=== PATIENT | female | born 1955 | race Caucasian/White ===

== ENCOUNTER → 2017-12-16 | Outpatient (CLI) | payer OTHER | END | disposition home or self-care (01) | LOC: LAB SHORT 07:59 → PLD 07:59 | DX: L57.0 Actinic keratosis (principal) | CPT/HCPCS: 88305 ==

== ENCOUNTER → 2018-06-11 | Outpatient (CLI) | payer OTHER ==
[~2018-06-11] MED LIST: ACID REDUCER 1150 MG PO; ACYC400 PO; BUPR150ER PO; CITRACAL + D E1 EACH PO; ESTRADIOL1 EAC1 TD; FLONASE ALLERG9.9 ML; GLUCOSAMINE HC500 MG PO; Hard Nails2500 MCG PO; IBUP800 PO; KRILL OIL500 MG PO; LINZESS290 MCG PO; MISO200 PO; MULTI VITAMIN1 EACH PO; NAPR220; PROG100 PO; SUPHEDRINE SINU30 MG PO; TRAZ50 PO
[2018-06-12 14:08] LABS: HPV 16 Negative (Negative); HPV 18 Negative (Negative); HPV OTHER HR TYPES Negative (Negative)
== END | disposition home or self-care (01) ==
LOC: LAB SHORT 12:11 → LAB 12:11
PROVIDERS: Nurse Practitioner Women's Health
DX: Z12.4 Encounter for screening for malignant neoplasm of cervix (principal); R87.619 Unspecified abnormal cytological findings in specimens from cervix uteri; Z91.89 Other specified personal risk factors, not elsewhere classified
CPT/HCPCS: 87624; G0123

== ENCOUNTER 2018-06-25 08:16 | Day surgery (SDC) | payer OTHER ==
[~2018-06-25] VITALS: Ht 160 cm; Wt 66.2 kg
== END 2018-06-25 10:10 | disposition home or self-care (01) ==
LOC: ORSCSDS 08:16
PROVIDERS: Internal Medicine Gastroenterology
PROC: 0DB68ZX Excision of Stomach, Via Natural or Artificial Opening Endoscopic, Diagnostic (ICD-10-PCS; principal; 2018-06-25 09:30)
DX: K21.9 Gastro-esophageal reflux disease without esophagitis (principal); K44.9 Diaphragmatic hernia without obstruction or gangrene; K22.2 Esophageal obstruction; F32.9 Major depressive disorder, single episode, unspecified; J45.909 Unspecified asthma, uncomplicated; E78.00 Pure hypercholesterolemia, unspecified; Z79.899 Other long term (current) drug therapy
CPT/HCPCS: 88305; 88342; J7120

== ENCOUNTER → 2018-06-26 | Outpatient (CLI) | payer OTHER | END | disposition home or self-care (01) | LOC: LAB SHORT 07:29 → PLD 07:29 | DX: N85.00 Endometrial hyperplasia, unspecified (principal); N95.0 Postmenopausal bleeding | CPT/HCPCS: 88305 ==

== ENCOUNTER 2022-09-13 09:38 | Day surgery (SDC) | payer OTHER ==
[~2022-09-13] VITALS: Ht 162.6 cm; Wt 69.5 kg
--- NOTE | 2022-09-13 11:12 | NUR ---
09/13/22 1112 Monica Liang PT IN LITHOTOMY POSITION IN [place] STIR-UPS WITH RIGHT ARM SECURED ON ARM BOARD. LEFT ARM IS TUCKED AND PADDED.
--- NOTE | 2022-09-13 12:00 | NUR ---
09/13/22 1200 FAISAL DOWNS PT UP TO BATHROOM. FEELS GREAT NEED TO URINATE. STEADY ON FEET. DENIES PAIN OTHER THAN NEED TO URINATE.
== END 2022-09-13 12:30 | disposition home or self-care (01) ==
LOC: ORSCSDS 09:38
PROVIDERS: Obstetrics & Gynecology
PROC: 0UDB8ZX Extraction of Endometrium, Via Natural or Artificial Opening Endoscopic, Diagnostic (ICD-10-PCS; principal; 2022-09-13 11:00)
DX: N95.0 Postmenopausal bleeding (principal); N84.0 Polyp of corpus uteri; J45.909 Unspecified asthma, uncomplicated; K21.9 Gastro-esophageal reflux disease without esophagitis; Z79.899 Other long term (current) drug therapy
CPT/HCPCS: 88305; A9270; J0690; J1100; J1885; J2250; J2405; J2704; J3010; J7120

== ENCOUNTER 2023-05-16 06:42 | Day surgery (SDC) | payer MEDICARE, OTHER ==
[~2023-05-16] VITALS: Ht 162.6 cm; Wt 67.2 kg
[2023-05-16] VITALS (20 sets, daily range): BP systolic 122–157; BP diastolic 60–96
[~2023-05-16 06:42] MED LIST changes: +MERIBIN5 MG PO; +MODA200 PO; +PRAV20 PO; +ZOLP5 PO
--- NOTE | 2023-05-16 07:00 | NUR ---
Ambulatory in Day.Pt has rigth wrist brace in place from recent surgery. Pt.reports 4/10 right wrist discomfort. Surgery History, Chart, Medications and Allergies reviewed before start of procedure.Lungs clear T/O to Auscultation. Patient confirms NPO status and agrees with scheduled surgery.Type and screen and Type check drawn and sent to lab. Patient reports completing Chlorhexadine shower X2 prior to admission to hospital.Surgical site prepped with 2% Chlorhexidine cloth wipe. Patient States Post-Procedure ride home has been arranged.
--- NOTE | 2023-05-16 12:41 | NUR ---
PATIENT ARRIVED FROM OR TODAY AT 1230. POD 0 LAP HYSTER PATIENT IS A&OX4. HER ABD HAS X4 LAP SITES WITH WOUND GLUE THAT ARE C/D/I. DEBBY WAS JUST TAKEN OUT. SHE WAS A SBA TO THE BATHROOM. ELAN PAD HAD NO BLOOD ON IT AT THIS TIME. PATIENT IS LAYING BACK IN BED WITH CALL LIGHT IN REACH AND AT BEDSIDE.
--- NOTE | 2023-05-16 15:37 | NUR ---
SHIFT SUMMARY: POD 0 LAP HYSTER PATIENT IS A&OX4. VS ARE WNL AND IS ON RA. PAIN IS MANAGED WITH PO PERCOCET AND ADVIL AT THIS TIME. HER NAUSEA HAS BEEN MANAGED WITH IV ZOFRAN, PO PHENERGAN, AND PO SIMETHICONE. PATIENT IS VOIDING AND TOLERATING SMALL AMOUNTS OF PO INTAKE. SHE IS A SBA TO THE BATHROOM. HER ABD BINDER IS IN PLACE. PATIENT HAS X4 LAP SITES ON HER ABD WITH WOUND GLUE THAT ARE ALL C/D/I. HER ELAN PAD HAS A SCANT ABOUT OF BLOOD ON IT. SHE IS CURRENTLY LAYING IN BED WITH THE HEATING PAD IN PLACE AND CALL LIGHT IN REACH.
[2023-05-16] MEDS ORDERED: IBUP800 PO (17:41)
[2023-05-16] MEDS ORDERED: PROM25 PO (17:41)
[2023-05-16] MEDS ORDERED: Percocet 5-3251 EACH PO (17:41)
[2023-05-16] MEDS ORDERED: SIME80CH PO (17:42)
--- NOTE | 2023-05-16 17:58 | NUR ---
DISCHARGE S/P LAP HYSTER PT [id number]. TOLERATING DIET WELL NO NAUSEA. PAIN CONTROLLED PER EMAR LAP SITES REMAIN CDI. BINDER IN PLACE. ALL INSTRUCTIONS GONE OVER WITH PATIENT. SCANT DRAINAGE ON ELAN PAD.
== END 2023-05-16 18:01 | disposition home or self-care (01) ==
LOC: ORSCMMR 06:42 → ORD 08:00 → SURS 11:55 → ORSCMMR 18:01
PROVIDERS: Obstetrics & Gynecology
PROC: 0UT9FZZ Resection of Uterus, Via Natural or Artificial Opening With Percutaneous Endoscopic Assistance (ICD-10-PCS; principal; 2023-05-16 08:00)
PROC: 0UT7FZZ Resection of Bilateral Fallopian Tubes, Via Natural or Artificial Opening With Percutaneous Endoscopic Assistance (ICD-10-PCS; principal; 2023-05-16 08:00)
PROC: 0UT2FZZ Resection of Bilateral Ovaries, Via Natural or Artificial Opening With Percutaneous Endoscopic Assistance (ICD-10-PCS; principal; 2023-05-16 08:00)
DX: N95.0 Postmenopausal bleeding (principal); N83.291 Other ovarian cyst, right side; D27.1 Benign neoplasm of left ovary; K66.0 Peritoneal adhesions (postprocedural) (postinfection); J45.909 Unspecified asthma, uncomplicated; K21.9 Gastro-esophageal reflux disease without esophagitis; Z79.899 Other long term (current) drug therapy
CPT/HCPCS: 86850; 86900; 86901; 88307; A9270; J0690; J1100; J1170; J1885; J2250; J2371; J2405; J2704; J2765; J3010; J7120